=== PATIENT | male | born 1990 | race Caucasian/White ===

== ENCOUNTER 2019-09-22 00:10 | Inpatient (IN) | payer MEDICAID ==
[2019-09-22] VITALS (17 sets, daily range): BP systolic 123–200; BP diastolic 87–140; Ht 152.4 cm; Wt 47.1 kg
[~2019-09-22] VITALS: Ht 152.4 cm; Wt 47.1 kg
--- NOTE | ~2019-09-22 | EC ---
PATIENT:ELIZABETH FIELD DATE OF SERVICE: 09/22/19 SEX: M MEDICAL RECORD: [id number] DATE OF : [birth year] LOCATION:[facility] AGE OF PATIENT: 29 ADMISSION DATE: 09/22/19 REFERRING PHYSICIAN: INTERPRETING PHYSICIAN: BLADIMIR CADE MD ECHOCARDIOGRAM REPORT ECHO CHARGES 4 ECHO COMPLETE Date: 09/22/19 CLINICAL DIAGNOSIS: SVT ECHOCARDIOGRAPHIC MEASUREMENTS (adult normal given) AC root (d.<3.7cm) 3.1 cm LV Septum d (<1.2 cm> 1.4 cm Valve Excursion 2.2 cm LV Septum (systole) 1.9 cm Left Atria (s.<4.0cm> 2.9 cm LVPW d(<1.2cm) 1.5 cm RV (d.<2.3cm) 3.0 cm LVPW (sytole) 1.7 cm LV diastole(<5.6CM) 3.6 cm MV E-F(>70mm/sec) cm LV systole 2.0 cm LVOT Diameter 2.0 cm MV exc.(>10mm) 1.6 cm Est.ejection fraction (50-75%) % DOPPLER: LVIT cm/sec A 84.0 cm/sec E 104.0 cm/sec LA cm/sec RVSP 18 mmHg LVOT 121 cm/sec AOP1/2T m/s Asc. Ao 146 cm/sec RVOT 101 cm/sec RA cm/sec PA 127 cm/sec AV Gradient Peak 8.49 mmHg AV Mean 4.25 mmHg AV Area 2.7 cm MV Gradient Peak 6.45 mmHg MV Mean 2.95 mmHg MV Area cm COMMENTS: Fashion Stylist: 2 JACQUELINE MCWILLIAMS Spa Concierge: 1 Dr. Cade TAPE# PACS Pericardial Effusion N DATE OF SERVICE: FINDINGS: 1. Left ventricular chamber size is within normal limits. Left ventricular systolic function is normal at 55% to 60%. 2. Left atrium, right atrium, and right ventricular chamber sizes are within normal limits. 3. Valvular structures have normal structure and motion. 4. Doppler interrogation reveals no significant valvular insufficiency or stenosis. Pulmonary systolic pressure is normal, estimated at 18 mmHg. ECHOCARDIOGRAM REPORT [id number] ELIZABETH FIELD 5. No evidence of pericardial effusion or left ventricular thrombus. TRANSINT:[id number] Voice Confirmation ID: [id number] DOCUMENT ID: [id number] BLADIMIR CADE MD CC: [id number] DICTATION DATE: 09/23/19929 CISCO NETWORK ENGINEER: 09/23/19939 ADM IN [facility] [address] [place] [id number]
--- NOTE | ~2019-09-22 | CN ---
PATIENT NAME:ELIZABETH FIELD MEDICAL RECORD: [id number] : [birth year] LOCATION:MAXIM.2314 ADMIT DATE: 09/22/19 ACCOUNT: [id number] CONSULTING PHYSICIAN: BLADIMIR JJ MD REFERRING PHYSICIAN: SUMMER SCHAEFER MD DATE OF CONSULTATION: 09/22/2019 CARDIOLOGY CONSULTATION DIAGNOSES: 1. Tachycardia. 2. Sepsis. 3. Elevated troponin. 4. Shortness of breath, dyspnea on exertion. HISTORY OF PRESENT ILLNESS: This is a prisoner who presents with shortness of breath and fatigue, weakness, mental status changes. He was found to be in tachycardia in the Emergency Room with heart rates in the 180s. He was given Cardizem, this broke, his heart rate was 60 this morning. He has had a recurrence of the tachycardia up to the 180s. His systolic blood pressure is 180-200. He does not have a cardiac history that he knows of. He has had a history of stroke with contractures. He denies any chest pain or chest discomfort. He does have the palpitations as well as shortness of breath. PHYSICAL EXAMINATION: CONSTITUTIONAL/GENERAL APPEARANCE: Well nourished, well developed, appears stated age. EYES: Lids and conjunctivae noninjected. No discharge. No pallor. ENT: Lips within normal limit. No cyanosis. No pallor. NECK: Carotid arteries, bilateral normal upstroke. No bruits. No thrills. No jugular venous pressure or distention. CERVICAL LYMPH NODES: Nontender. Nonenlarged. THYROID: Not enlarged. No nodules. CARDIOVASCULAR: Heart rate is tachycardic, irregular. Heart rates in the 180 range at this point. RESPIRATORY: Respiratory effort, unlabored. Normal curvature. No thoracic deformity. No chest wall tenderness. Percussion, resonant. Auscultation, clear. No wheezes, no rales, no rhonchi. ABDOMEN: Soft, nondistended, nontender. No abdominal pain, no vomiting and normal appetite. MUSCULOSKELETAL: No joint tenderness, normal gait, normal tone. SKIN: Warm and dry. OVERALL IMPRESSION: Supraventricular tachycardia with an elevated troponin. We will re-bolus him with Cardizem and then continue with antiarrhythmic therapy with sotalol and Cardizem, get an echocardiogram. Further care depends upon the results with the Cardizem and the echocardiogram. TRANSINT:[id number] Voice Confirmation ID: [id number] DOCUMENT ID: [id number] CONSULT REPORT [id number] ELIZABETH FIELD JEFFREY MD CC: [id number] DICTATION DATE: 09/22/19809 ENGINEER DESIGN AND CONSTRUCTION: 09/22/19 1045 ADM IN [facility] [address] [id number]
[2019-09-22] MEDS ORDERED: OMEPRAZOLE20 M1 PO (00:35)
[2019-09-22 00:42] LABS: HEMATOCRIT 44.5 % (42.0-54.0); HEMOGLOBIN 15.2 g/dL (13.5-17.5); MCH 27.5 pg (26.0-34.0); MCHC 34.2 g/dL (31.0-37.0); MCV 80.5 fL (80.0-100.0); PLATELET COUNT 343 10x3/uL (130-400); RBC 5.53 10x6/uL (4.20-6.10); RDW 12.9 % (11.5-14.5); WBC 20.5 10x3/uL (4.8-10.8)
[2019-09-22 00:58] LABS: CALC OSMOLALITY 265 mosm/kg (275-300); CALCIUM 9.4 mg/dL (8.5-10.1); CARBON DIOXIDE 25.1 mmol/L (21.0-32.0); CHLORIDE - SERUM 97 mmol/L (98-107); CREATININE - SERUM 0.9 mg/dL (0.6-1.3); GLUCOSE 112 mg/dL (74-106); POTASSIUM - SERUM 3.8 mmol/L (3.5-5.1); SODIUM 132 mmol/L (136-145); UREA NITROGEN 12 mg/dL (7-18); eGFR NON AFRICAN AMERICAN > 90 mL/min (90-120)
[2019-09-22 01:03] LABS: APTT 32.7 SECONDS (22.8-39.4); INR 1.24 (0.85-1.17); PROTIME 15.5 SECONDS (11.6-15.0)
[2019-09-22 01:11] LABS: LYMPHOCYTES 10 % (15-50); MONOCYTES 4 % (2-11); NEUTROPHILS 84 % (40-80); PLATELET ESTIMATE NORMAL; TOXIC GRANULATION 2+
[2019-09-22 01:20] LABS: ALBUMIN 3.7 g/dL (3.4-5.0); ALKALINE PHOSPHATASE 83 U/L (30-120); ALT (SGPT) 21 U/L (10-68); CKMB 3.7 U/L (0.0-3.6); CREATINE KINASE 559 UL (21-232); MAGNESIUM - SERUM 1.5 mg/dL (1.8-2.4); PROTEIN - SERUM 7.9 g/dL (6.4-8.2)
[2019-09-22 01:22] LABS: TROPONIN-I 0.469 ng/mL (0.000-0.060)
[2019-09-22 02:42] LABS: BACTERIA FEW /hpf (NEGATIVE); BILIRUBIN NEGATIVE (NEGATIVE); EPITHELIAL CELLS NSEEN /hpf (0-5); GLUCOSE NEGATIVE (NEGATIVE); KETONE LARGE mg/dL (NEGATIVE); NITRITE NEGATIVE (NEGATIVE); RED CELLS - URINE 25-50 /hpf (0-5); UROBILINOGEN 8 mg/dL (NORMAL)
--- NOTE | 2019-09-22 03:30 | NUR ---
RECIEVED REPORT FROM ER, PT ARRIVED BY STRETCHER. ALERT, BUT LETHARGIC AND NON-VERBAL AT TIME OF ADMISSION. ARRIVED ON THE FLOOR WITH 2 PIV, ONE ON RFA AND THE OTHER ON LEFT HAND. ALTHOUGH PT ACCIDENTALLY PULLED OUT IV. MINIMAL BLEEDING NOTED. GAUAZE AND TAPE APPLIED. PRE-HOSPITALIZATION FOELY NOTED, URINE APPEARS CONC. AND CLOUDY. PT PLACED NPO PER PROVIDERS BINTA. SR-SINUS TACH ON TELE. PT AFVSS, NO S/S OF RT DISTRESS 98% O2 @ ROOM AIR. LEFT FOOT CONTRACTURE NOTED. PT IS A TOTAL ASSIST. ADMISSION ASSESMENT COMPLETED. PT DENIES ANY FURTHER NEEDS AT THIS TIME. WILL CTM. CL WITHIN REACH. PIV ON L.HAND INTACT. LONG-TERM GAURD IN ROOM AND PT PLACED ON RESTRAINT PER CORRECTIONS PROTOCOL.
--- NOTE | 2019-09-22 05:30 | NUR ---
ON ASSESSMENT, FOUND PT SWEATING PROFUSELY. PT APPEARS TACHYPNEIC. OBTAINED A QUICK EKG. PT HT 188. VS BP 203/113, HR 168, RR 28, TEMP 99.3, O2SAT 100. PT IS STILL NON-VERBAL, THUS CAN NOT RESPOND TO QUESTIONS BEEN ASKED. ASSESSMENT WAS ONGOIN, RECIEVED REPORT FROM LAB ABOUT PT'S LACTIC ACID OF 5.4. CODE SEPSIS CALLED PER HOSPITAL PROTOCOL. CODE TEAM IN PT'S ROOM AT THIS TIME.
--- NOTE | 2019-09-22 06:10 | NUR ---
ICU CHARGE NURSE RECIEVED ORDERS FROM PHARMACY INTAKE COORDINATOR ON-CALL TO INFUSE MERREM AND VANC AND ALSO TO REPLACE CHRONIC VANG. ABGS OBTAINED. BLOOD CULTURES OBTAINED. ORDERS PUT IN BY ICU CHARGE NURSE. PT SHOWS NO S/S OF DISTRESS AT THIS TIME. WILL CTM.
[2019-09-22 06:26] LABS: CKMB 10.2 U/L (0.0-3.6)
[2019-09-22 06:27] LABS: CREATINE KINASE 744 UL (21-232)
[2019-09-22 06:28] LABS: TROPONIN-I 2.762 ng/mL (0.000-0.060)
[2019-09-22 06:35] LABS: BASOPHILS 0.2 % (0-2); EOSINOPHILS 0.1 % (0-7); HEMATOCRIT 40.8 % (42.0-54.0); HEMOGLOBIN 14.3 g/dL (13.5-17.5); IMMATURE GRANULOCYTES 0.3 % (0-5); LYMPHOCYTES 10.9 % (15-50); MCH 28.1 pg (26.0-34.0); MCV 80.2 fL (80.0-100.0); MEAN PLATELET VOLUME 9.4 fL (7.4-10.4); MONOCYTES 9.2 % (2-11); NEUTROPHILS 79.3 % (40-80); PLATELET COUNT 355 10x3/uL (130-400); RBC 5.09 10x6/uL (4.20-6.10); RDW 12.4 % (11.5-14.5); WBC 20.7 10x3/uL (4.8-10.8)
--- NOTE | 2019-09-22 07:42 | NUR ---
REPORT PASSED ALONG TO INCOMING NURSE ABOUT PT'S DIAGNOSIS AND INTERVENTION PROVIDED.
--- NOTE | 2019-09-22 08:00 | NUR ---
PTS VANG CATHETER CAME FROM OUTSIDE FACILITY AND NEEDS CHANGED. D/C WITH CATHETER TIP FULLY INTACT, PURULENT DRAINAGE CAME OUT WITH IT. CLEANSED PT AND NEW 16FR VANG PLACED USING STERILE TECHNIQUE. STAT LOCK SECURED TO L.INNER THIGH. CLEAR YELLOW URINE NOW DRAINING TO GRAVITY OFF L.SIDE OF BED. PT PULLED OUT HIS PIV IN HIS R.HAND BY ACCIDENT. NEW 22 GUAGE PIV INSERTED TO L.FA X1 STICK AND WRAPPED FOR PROTECTION. PTS HR KEEPS RISING AND HIS IS DIAPHORETIC, BREATHING FAST AND SHALLOW. STAT EKG DONE AND PAGED CARDIOLOGY AND RAPID RESPONSE CALLED. WILL CTM CLOSELY.
--- NOTE | 2019-09-22 08:46 | NUR ---
PT REMAINS UNSTABLE HEART RATE AND BP. DISCUSSED WITH AND AND WILL TRANSFER PT TO ICU FOR CLOSER MONITERING. CALLED MANUAL PLATE FILLER FOR A BED.
--- NOTE | 2019-09-22 09:48 | NUR ---
PT RECEIVED TO 2314. PLACED IN RESTRAINTS D/T PULLING AT LINES AND EKG LEADS. INTERFERING WITH CARE. SOFT WRIST RESTRAINTS. OFFICER AT BEDSIDE WITH PT.
--- NOTE | 2019-09-22 10:11 | NUR ---
BP 198/140. DR SCHAEFER IN UNIT. ORDERED 1 TIME DOSE OF HYDRALAZINE 10MG. GIVEN IV.
[2019-09-22 10:16] LABS: ERYTHROCYTE SEDIMENTATION RATE 11 mm/hr (0-15)
--- NOTE | 2019-09-22 10:24 | NUR ---
AFTER DOSE OF HYDRALAZINE, BP 155/94. HR 106.
[2019-09-22 13:02] LABS: CKMB 11.5 U/L (0.0-3.6); CREATINE KINASE 1126 UL (21-232); TROPONIN-I 5.599 ng/mL (0.000-0.060)
--- NOTE | 2019-09-22 13:29 | NUR ---
ICE PACKS UNDER ARMS.
--- NOTE | 2019-09-22 14:18 | MORECARE ---
CASE MANAGEMENT DISCHARGE SUMMARY PATIENT: ELIZABETH FIELD UNIT: [id number] ADM DATE: 09/22/19 AGE: 29 : [birth year] SEX: M ROOM/BED: D.2314 AUTHOR: KENNETH JACOBS PHYSICIAN: REFERRING PHYSICIAN: SUMMER SCHAEFER MD DATE OF SERVICE: 09/22/19 Discharge Plan Patient Name: ELIZABETH FIELD Facility: [facility]:[place] : 1990 Planned Disposition: Court\Law Enforcement Anticipated Discharge Date: Discharge Date: Expected LOS: Initial Reviewer: [email or web address] Initial Review Date: 09/22/2019 Generated: 09/22/19 3:17 pm Patient Name: ELIZABETH FIELD Page 26609 at 1418 All edits/amendments must be made on the electronic document DICTATION DATE: 09/22/19 1417 PROCEDURAL NURSE: CALE 09/22/19 1417 RPT#: [id number] DC DATE: STATUS: ADM IN [facility] [address] [place] [address] END OF REPORT
--- NOTE | 2019-09-22 14:46 | MORECARE ---
CASE MANAGEMENT DISCHARGE SUMMARY PATIENT: ELIZABETH FIELD UNIT: [id number] ADM DATE: 09/22/19 AGE: 29 : [birth year] SEX: M ROOM/BED: D.2314 AUTHOR: ARLENE,DOC PHYSICIAN: REFERRING PHYSICIAN: SUMMER SCHAEFER MD DATE OF SERVICE: 09/22/19 Discharge Plan Patient Name: ELIZABETH FIELD Facility: [facility]:[place] : 1990 Planned Disposition: Court\Law Enforcement Anticipated Discharge Date: Discharge Date: Expected LOS: Initial Reviewer: [email or web address] Initial Review Date: 09/22/2019 Generated: 09/22/19 3:45 pm Comments DCP- Discharge Planning Updated by [email or web address]: Sophie De La Paz on 09/22/19 1:[address] Patient Name: ELIZABETH FIELD Admission Status: ER Accout number: [id number] Admission Date: 09-22-2019 : 1990 Admission Diagnosis: Attending: STACY SCHAEFER Current LOS: 1 Anticipated DC Date: Planned Disposition: Court\Law Enforcement Primary Insurance: MEDICAID ALF PENDING Discharge Planning Comments: PATIENT IS AN INMATE WITH [facility] AT [facility]. PATIENT WILL RETURN TO FACILITY UPON DISCHARGE GUARD AT BEDSIDE. CM WILL CONTINUE TO FOLLOW AND ASSIST NEEDED WITH DISCHARGE PLANNING. Conditioning Yard Supervisor: Sophie De La Paz DCPIA - Discharge Planning Initial Assessment Updated by [email or web address]: Sophie De La Paz on 09/22/19 2:39 pm * Is the patient Alert and Oriented? Yes * How many steps to enter\exit or inside your home? * PCP [facility] * Pharmacy [facility] * Preadmission Environment Other * ADLs Independent * List name and contact numbers for known caregivers / representatives who currently or will assist patient after discharge: [facility] * Verbal permission to speak to the caregivers and representatives has been obtained from the patient. N/A * Community resources currently utilized None * Additional services required to return to the preadmission environment? No * Can the patient safely return to the preadmission environment? Yes * Has this patient been hospitalized within the prior 30 days at any hospital? No Last DP export: 09/22/19 1:18 pm Patient Name: ELIZABETH FIELD Page 00149 at 1446 All edits/amendments must be made on the electronic document DICTATION DATE: 09/22/191444 BANQUET MANAGER: CALE 09/22/191444 RPT#: [id number] DC DATE: STATUS: ADM IN [facility] [address] [place] [address] END OF REPORT
--- NOTE | 2019-09-22 19:00 | NUR ---
Report received from off going nurse. Initial assessment completed, see flowsheet for details. Upon completeing assessment it is noted that pt's pupils are unequal (L4 R8) and non reactive, looking back at previous assessments pupils were charted to be equal, 3 and reactive. That combined with the fact that the patient is still unresponsive to any stimuli, I contacted Andrews RILEY who asked that I call the Dr with that information and that he would come look at the patient. Head CT ordered. No needs noted at this time. Will continue to monitor.
[2019-09-22 19:31] LABS: CKMB 0.3 U/L (0.0-3.6); CREATINE KINASE 134 UL (21-232); TROPONIN-I < 0.017 ng/mL (0.000-0.060)
--- NOTE | 2019-09-22 21:00 | NUR ---
Pt is laying in bed unresposive at this time. Results of the head CT received. Upon looking at pt's monitor ST elevation was noted, EKG obtained, results along with most recent Troponin called to Dr Fuller. Tiny conferred regarding CT results and EKG results and prognosis was determined to be grim. Continueing to monitor.
[2019-09-22 22:32] LABS: CKMB 98.5 U/L (0.0-3.6); CREATINE KINASE 1213 UL (21-232)
[2019-09-22 22:33] LABS: TROPONIN-I 14.659 ng/mL (0.000-0.060)
--- NOTE | 2019-09-22 23:00 | NUR ---
Reassessment completed, see flowsheet for details. Upon taking pt's temperture it was noted to be 92.9, bear linnea placed on pt. No further needs at this time.
[2019-09-23] VITALS (23 sets, daily range): BP systolic 133–178; BP diastolic 90–125
--- NOTE | 2019-09-23 01:00 | NUR ---
Pt's temperture is gradually increasing with bear hugger on. Consult put in for Dr. Prince. Niki notified of consult. Orders received. No further needs at this time. Will continue to monitor.
--- NOTE | 2019-09-23 03:00 | NUR ---
Reassessment completed, see flowsheet for details. Pt is laying in bed unresponsive still at this time. Pt's HR and BP are elevated significantly at this time, PRN medication given and scheduled lopressor given early. No further needs at this time. Will continue to monitor.
--- NOTE | 2019-09-23 05:00 | NUR ---
ABG results obtained and called to Dr. Gold. After getting off the phone with Asif pt started what appeared to be gasping for breaths and appeared to be trying to vomit or choke. Called Dr Prince and notified him of increasing BP and HR and seeming lack of airway control. Received orders to intubate. Anesthesia paged. Pt intubated with a 7.5 at 22 at the lip. No further needs noted. Will continue to monitor.
[2019-09-23 05:26] LABS: HEMOGLOBIN 15.9 g/dL (13.5-17.5); MCHC 34.6 g/dL (31.0-37.0); MEAN PLATELET VOLUME 9.6 fL (7.4-10.4); PLATELET COUNT 352 10x3/uL (130-400); RBC 5.68 10x6/uL (4.20-6.10); WBC 28.9 10x3/uL (4.8-10.8)
--- NOTE | 2019-09-23 05:52 | NUR ---
Called [facility] regarding poor pt prognosis earlier in the night, was told a message would be given to the Noman. Received a call back just now with a number to the Director of Health Services for [facility], they do not open until 8AM and at this time I feel like a call to the family and someone to obtain consents from would be in order. Asked for an emergency number in case this happens before they open at 8AM. Noman stated he needed to call the [place] and that he would call me back.
[2019-09-23 06:08] LABS: ALBUMIN 3.1 g/dL (3.4-5.0); ALKALINE PHOSPHATASE 77 U/L (30-120); BILIRUBIN - TOTAL 0.58 mg/dL (0.2-1.3); CALC OSMOLALITY 265 mosm/kg (275-300); CALCIUM 9.4 mg/dL (8.5-10.1); CARBON DIOXIDE 19.4 mmol/L (21.0-32.0); CHLORIDE - SERUM 98 mmol/L (98-107); CREATININE - SERUM 0.8 mg/dL (0.6-1.3); GLUCOSE 89 mg/dL (74-106); MAGNESIUM - SERUM 1.8 mg/dL (1.8-2.4); PHOSPHOROUS 2.7 mg/dL (2.5-4.9); POTASSIUM - SERUM 3.3 mmol/L (3.5-5.1); PROTEIN - SERUM 7.2 g/dL (6.4-8.2); SODIUM 133 mmol/L (136-145); UREA NITROGEN 14 mg/dL (7-18); eGFR NON AFRICAN AMERICAN > 90 mL/min (90-120)
[2019-09-23 06:10] LABS: ALT (SGPT) 42 U/L (10-68); CREATINE KINASE 1126 UL (21-232); TROPONIN-I 21.568 ng/mL (0.000-0.060)
[2019-09-23 06:11] LABS: CKMB 148.8 U/L (0.0-3.6)
--- NOTE | 2019-09-23 08:10 | NUR ---
SPOKE WITH THE SISTER JORDI ALANIZ ([phone]) SHE STATES SHE RECIEVED A PHONE CALL REGARDIMG HER BROTHERS CONDITION. UNSURE OF PROCEDURE TO BE ABLE TO VISIT. I WILL CALL DIRECTOR OF HEALTH SERVICES FOR [facility] TO GET INSTRUCTIONS.
--- NOTE | 2019-09-23 08:29 | NUR ---
SPOKE WITH GABRIELLA JIMENEZ, DIRECTOR OF HEALTH SERVICES FOR [facility] ([phone]). THE FAMILY WILL NEED TO CALL AND SPEAK TO HER DIRECTLY IN ORDER FOR VISITATION TO BE SET UP. CALLED SISTER JORDI BACK AT THIS TIME TO GIVE HER THE NAME AND NUMBER OR WHO SHE NEEDS TO CONTACT.
[2019-09-23 08:37] LABS: ANISOCYTOSIS OCC; CRENATED CELLS OCC; LYMPHOCYTES 11 % (15-50); MONOCYTES 8 % (2-11); NEUTROPHILS 78 % (40-80); PLATELET ESTIMATE NORMAL
--- NOTE | 2019-09-23 08:45 | NUR ---
NUCLEAR MED HERE TO TAKE PATIENT FOR SCAN. RT ALSO AT BEDSIDE TO ASSIST.
--- NOTE | 2019-09-23 09:32 | NUR ---
LOWER ABD HAS BECOME MORE FIRM AND DISTENDED. VANG CATH DOES NOT SEEM TO BE DRAINING APPROPRIATELY. UPON BLADDER SCAN 999+ FOUND. VANG D/C'D. ATTEMPTS TO REINSERT VANG UNSUCCESSFUL. WILL CONSULT DR NOVOA FOR EVALUATION.
--- NOTE | 2019-09-23 09:40 | NUR ---
DR NOVOA CONSULTED. HE WANTS PATIENT CONSENTED FOR CYSTO WITH VANG INSERTION.
--- NOTE | 2019-09-23 09:47 | NUR ---
SPOKE WITH FAMILY AND CONSENT OBTAINED FROM STEP-FATHER SABINE SAMANO.
--- NOTE | 2019-09-23 09:48 | NUR ---
DECREASE O2 TO 50%
--- NOTE | 2019-09-23 10:18 | NUR ---
DR NOVOA AT BEDSIDE. HE STATES DUE TO THE READING OF THE BRAIN FUNCTION SCAN HE WILL NOT BE TAKING THE PATIENT TO THE OR. SEE RADIOLOGY REPORT FOR READING.
--- NOTE | 2019-09-23 12:10 | NUR ---
DR BARNES IN FAMILY ROOM SPEAKING WITH THE FAMILY ABOUT DIAGNOSIS AND FURTHER PLAN OF CARE.
--- NOTE | 2019-09-23 13:14 | NUR ---
FAMILY IS AT BEDSIDE AND STATES THEY ARE READY TO PROCEED WITH EXTUBATION.
--- NOTE | 2019-09-23 17:05 | NUR ---
FAMILY ALL LEAVING BEDSIDE. REQUESTS IF PATIENT PASSES TO CALL SABINE SAMANO. HE CAN BE REACHED AT [phone].
--- NOTE | 2019-09-23 19:18 | NUR ---
IN BED IV TO LEFT FA. IN PLACE AND PATEN EYES 8CM AND FIXED, RESPRATIONS DEEP WITH APNEA. O2 IN PLACE VIA N/C AT 2L. ALXE AT BEDSIDE. NO APARENT DISTRESS.
--- NOTE | 2019-09-23 21:40 | NUR ---
PT CONTINUES TO BE NONVERBALE AND UNRESPONSIVE, CARE PROVIDED NEEDED TO INSURE COMFOURT. ALEX AT BEDSIDE.
--- NOTE | 2019-09-23 23:25 | NUR ---
ALEX AT BEDSIDE. PT REMAINS NONVERABLE AND UNRESPONSIVE. ON VIA N/C IN PLACE. CARE TO PROVIDE COMFOTR AT THIS TIME NO S/S OF DISTRESS.
[2019-09-24] VITALS (7 sets, daily range): BP systolic 129–156; BP diastolic 82–107
--- NOTE | 2019-09-24 03:20 | NUR ---
REMAINS NOVERBALE AND UNRESPONSIVE CARE FOR COMFORT AND SAFETY. BATH GIVEN AND BED CHANGED. ALEX REMAINS AT BEDSIDE.
--- NOTE | 2019-09-24 05:38 | NUR ---
REMAINS UNRESPONSIVE AND NONVERBALE, CARE FOR COMFORT AND SAFETY. NO ACUT CHANGES NOTED AT THIS TIME. ALEX AT BEDSIDE
--- NOTE | 2019-09-24 13:28 | NUR ---
PT RACHNA DOWN TO 40'S AND WENT ASYSTOLY. IN THE UNIT HE CAME TO BEDSIDE AND PRONOUNCED TIME OF AT 1324. ROOM LEFT ALONE AND NOTIFYING THE BULLARD OPERATOR.
--- NOTE | 2019-09-24 14:27 | NUR ---
PT FAMILY NOTIFIED SABINE YOUNG STEP FATHER.
--- NOTE | 2019-09-24 18:38 | MORECARE ---
CASE MANAGEMENT DISCHARGE SUMMARY PATIENT: ELIZABETH FIELD UNIT: [id number] ADM DATE: 09/22/19 AGE: 29 : [birth year] SEX: M ROOM/BED: D.2314 AUTHOR: ARLENE,DOC PHYSICIAN: REFERRING PHYSICIAN: SUMMER SCHAEFER MD DATE OF SERVICE: 09/24/19 Discharge Plan Patient Name: ELIZABETH FIELD Facility: [facility]:[place] : 1990 Planned Disposition: Court\Law Enforcement Anticipated Discharge Date: Discharge Date: 09/24/2019 Expected LOS: Initial Reviewer: [email or web address] Initial Review Date: 09/22/2019 Generated: 09/24/19 7:37 pm DCP- Discharge Planning Updated by [email or web address]: Sophie De La Paz on 09/22/19 1:[address] Patient Name: ELIZABETH FIELD Admission Status: ER Accout number: [id number] Admission Date: 09-22-2019 : 1990 Admission Diagnosis: Attending: STACY SCHAEFER Current LOS: 1 Anticipated DC Date: Planned Disposition: Court\Law Enforcement Primary Insurance: MEDICAID ASSISTED PENDING Discharge Planning Comments: PATIENT IS AN INMATE WITH [facility]. PATIENT WILL RETURN TO FACILITY UPON DISCHARGE GUARD AT BEDSIDE. CM WILL CONTINUE TO FOLLOW AND ASSIST NEEDED WITH DISCHARGE PLANNING. Indoor Sports Centre Manager: Sophie De La Paz DCPIA - Discharge Planning Initial Assessment Updated by [email or web address]: Sophie De La Paz on 09/22/19 2:39 pm * Is the patient Alert and Oriented? Yes * How many steps to enter\exit or inside your home? * PCP [facility] * Pharmacy [facility] * Preadmission Environment Other * ADLs Independent * List name and contact numbers for known caregivers / representatives who currently or will assist patient after discharge: [facility] * Verbal permission to speak to the caregivers and representatives has been obtained from the patient. N/A * Community resources currently utilized None * Additional services required to return to the preadmission environment? No * Can the patient safely return to the preadmission environment? Yes * Has this patient been hospitalized within the prior 30 days at any hospital? No Last DP export: 09/22/19 1:46 pm Patient Name: ELIZABETH FIELD Page [phone] at 1838 All edits/amendments must be made on the electronic document DICTATION DATE: 09/24/191836 GAS CONTROLLER: CALE 09/24/191836 RPT#: [id number] DC DATE:09/24/19 STATUS: DIS IN [facility] [address] [place] [address] END OF REPORT
--- NOTE | 2019-09-24 18:45 | MORECARE ---
CASE MANAGEMENT DISCHARGE SUMMARY PATIENT: ELIZABETH FIELD UNIT: [id number] ADM DATE: 09/22/19 AGE: 29 : [birth year] SEX: M ROOM/BED: D.2314 AUTHOR: ARLENE,DOC PHYSICIAN: REFERRING PHYSICIAN: SUMMER SCHAEFER MD DATE OF SERVICE: 09/24/19 Discharge Plan Patient Name: ELIZABETH FIELD Facility: [facility]:[place] : 1990 Planned Disposition: Court\Law Enforcement Anticipated Discharge Date: Discharge Date: 09/24/2019 Expected LOS: Initial Reviewer: [email or web address] Initial Review Date: 09/22/2019 Generated: 09/24/19 7:45 pm Comments DCP- Discharge Planning Updated by [email or web address]: Sophie De La Paz on 09/24/19 5:[address] LATE ENTRY 09/23/19 CM contacted Sade with [facility] to find out what has to be done to terminally extubate patient. Sade stated that is patient's families decision to make. Sade stated family was suppose to have visitation with patient today. CM asked for contact information in case family not with patient. CM instructed nursing that family has rights to make that decision for patient. Nursing stated that family was here and he would speak to them. CM will continue to follow and assist as needed with discharge planning / needs. DCP- Discharge Planning Updated by [email or web address]: Sophie De La Paz on 09/22/19 1:[address] Patient Name: ELIZABETH FIELD Admission Status: ER Accout number: [id number] Admission Date: 09-22-2019 : 1990 Admission Diagnosis: Attending: STACY SCHAEFER Current LOS: 1 Anticipated DC Date: Planned Disposition: Court\Law Enforcement Primary Insurance: MEDICAID SKILLED NURSING PENDING Discharge Planning Comments: PATIENT IS AN INMATE WITH [facility] AT [facility]. PATIENT WILL RETURN TO FACILITY UPON DISCHARGE GUARD AT BEDSIDE. CM WILL CONTINUE TO FOLLOW AND ASSIST NEEDED WITH DISCHARGE PLANNING. Radius Grinder: Sophie De La Paz DCPIA - Discharge Planning Initial Assessment Updated by [email or web address]: Sophie De La Paz on 09/22/19 2:39 pm * Is the patient Alert and Oriented? Yes * How many steps to enter\exit or inside your home? * PCP [facility] * Pharmacy [facility] * Preadmission Environment Other * ADLs Independent * List name and contact numbers for known caregivers / representatives who currently or will assist patient after discharge: [facility] * Verbal permission to speak to the caregivers and representatives has been obtained from the patient. N/A * Community resources currently utilized None * Additional services required to return to the preadmission environment? No * Can the patient safely return to the preadmission environment? Yes * Has this patient been hospitalized within the prior 30 days at any hospital? No Last DP export: 09/24/19 5:38 pm Patient Name: ELIZABETH FIELD Page 44668 at 1845 All edits/amendments must be made on the electronic document DICTATION DATE: 09/24/191844 BI TRI OPERATOR: CALE 09/24/191844 RPT#: [id number] DC DATE:09/24/19 STATUS: DIS IN [facility] [address] [place] [address] END OF REPORT
--- NOTE | 2019-09-27 14:02 | NUR ---
Per CMS protocol, restraint report logged into data base.
== END 2019-09-24 15:12 | DRG 871 ==
LOC: D.ER 00:10 → D.M2 01:42 → D.ICU 01:42
PROVIDERS: Family Medicine; ADMIT Emergency Medicine; ATTEND Emergency Medicine
PROC: 5A1935Z Respiratory Ventilation, Less than 24 Consecutive Hours (ICD-10-PCS; principal; 2019-09-23)
PROC: 0BH17EZ Insertion of Endotracheal Airway into Trachea, Via Natural or Artificial Opening (ICD-10-PCS; 2019-09-23)
DX: A41.9 Sepsis, unspecified organism (principal); J18.1 Lobar pneumonia, unspecified organism; G93.6 Cerebral edema; J96.01 Acute respiratory failure with hypoxia; G93.41 Metabolic encephalopathy; E87.3 Alkalosis; I47.1 Supraventricular tachycardia; E87.1 Hypo-osmolality and hyponatremia; E87.2 Acidosis; I16.0 Hypertensive urgency; E83.42 Hypomagnesemia; D49.6 Neoplasm of unspecified behavior of brain; Q85.01 Neurofibromatosis, type 1